=== PATIENT | male | born 1975 | race Two or more races ===

== ENCOUNTER 2022-06-16 11:56 | Emergency (ER) | payer BC ==
[~2022-06-16] VITALS: Ht 170.2 cm; Wt 144.1 kg
[2022-06-16 12:54] VITALS: BP 142/67
[2022-06-16 14:18] LABS: Urine Bacteria NONE SEEN /hpf (None Seen); Urine Blood Negative /uL (Negative); Urine Mucus FEW (None Seen); Urine Specific Gravity 1.016 (1.001-1.035); Urine WBC 1 /hpf (0 - 3)
[2022-06-16 14:22] LABS: Basophils # (auto) 0 10 ^3/uL (0-0.2); Basophils % (auto) 0.4 % (0.0-2.0); Eosinophils # (auto) 0.1 10 ^3/uL (0-0.8); Eosinophils % (auto) 1.7 % (0.0-7.0); Hematocrit 43.3 % (41.0-53.0); Hemoglobin 14.9 g/dL (13.5-17.5); Lymphocytes # (auto) 2.8 10 ^3/uL (0.4-5.4); Lymphocytes % (auto) 32.5 % (10.0-50.0); Mean Corpuscular Hemoglobin 30.2 pg (28.0-32.0); Mean Corpuscular Hgb Conc. 34.4 g/dL (32.0-36.0); Mean Corpuscular Volume 87.6 fL (80.0-100.0); Monocytes # (auto) 0.5 10 ^3/uL (0-1.3); Monocytes % (auto) 5.5 % (0.0-12.0); Neutrophils # (auto) 5.1 10 ^3/uL (1.6-8.6); Neutrophils % (auto) 59.9 % (37.0-80.0); Nucleated Red Blood Cells % 0.1 %; Red Blood Cells 4.94 10^6/uL (4.5-5.90); Red Cell Distribution Width 13.2 % (11.8-14.3); White Blood Cell 8.5 10^3/uL (4.4-10.8)
[2022-06-16 14:53] LABS: Calcium 9.3 mg/dL (8.5-10.1); Potassium 3.9 mmol/L (3.5-5.1)
[2022-06-16 14:56] LABS: BUN/Creatinine Ratio 12.4 (10.0-20.0)
[2022-06-16] MEDS ORDERED: KETOROLAC TROMETH 60MG/2ML VIAL IM ONE (15:00)
[2022-06-16] MEDS ORDERED: IBUP800T27 PO (15:12)
[2022-06-16] MEDS ORDERED: METH750T22 PO (15:12)
== END 2022-06-16 15:21 | disposition home or self-care (01) ==
LOC: ER 11:56
DX: S39.012A Strain of muscle, fascia and tendon of lower back, initial encounter (principal); E66.01 Morbid (severe) obesity due to excess calories; X58.XXXA Exposure to other specified factors, initial encounter; Y93.89 Activity, other specified; Y92.89 Other specified places as the place of occurrence of the external cause; Y99.8 Other external cause status
CPT/HCPCS: 36415; 74176; 80048; 81001; 85025; 96372; 99285; J1885

== ENCOUNTER 2024-02-10 17:42 | Inpatient (IN) | payer BC ==
[~2024-02-10] VITALS: Ht 170.2 cm; Wt 139.5 kg
[~2024-02-10 17:42] MED LIST: IBUP-1456 PO; METH-1182 PO
--- NOTE | 2024-02-10 17:50 | ECG ---
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
--- NOTE | 2024-02-10 18:20 | ED.PDOC ---
HPI Comments 48y M who presents to the ED for chief complaint of chest pain. Pt states he has been having chest pain since earlier this AM when waking from sleep. Pt states his pain is substernal, radiating to the back, constant, pressure like in nature, rating the pain 7/10 with no associated exacerbating or relieving factors. Pt has no associated symptoms but denies shortness of breath, diaphoresis, palpitations, headache, nausea, vomiting, fever, cough or chills. Pt has no past medical history and denies these symptoms in the past. Pt states he came as a precautionary measure just to make sure everything is okay. Pt otherwise has noted stable vitals in the ED. Pt denies any other symptoms at this time. Chief Complaint: Chest Pain Time Seen by MD: 18:16 Primary Care Provider: DENIES Reviewed Notes: Medications, Allergies Allergies: Coded Allergies: NO KNOWN ALLERGIES (Unverified , 12/24/13) Home Meds Active Scripts Methocarbamol (Methocarbamol) 750 Mg Tab, 750 MG PO BID, #30 TAB Prov:ROSA JARAMILLO 06/16/22 Ibuprofen (Ibuprofen) 800 Mg Tab, 1 TAB PO TID, #30 TAB Prov:ROSA JARAMILLO 06/16/22 Information Source: Patient Mode of Arrival: Ambulatory Brought in by: self Severity: Moderate Timing: Hours Duration: Since onset Prehospital treatment: None Location: Chest (R) Radiation: Back Quality: Pressure Onset: At Rest Cardiac Risk Factors: None PE Risk Factors: None History of: None Modifying Factors: Nothing Associated Signs and Symptoms: None Past Medical History PAST MEDICAL HISTORY: Denies Surgical History: Denies all surgeries Family History Family History: Reviewed,noncontributory to illness Social History Smoker: Non-Smoker Alcohol: Occasionally Drugs: Denies Drug Use Lives In: Home Constitutional: denies: chills, diaphoresis, fatigue, fever, malaise, sweats, weakness, others EENTM: denies: blurred vision, double vision, ear bleeding, ear discharge, ear drainage, ear pain, ear ringing, eye pain, eye redness, hearing loss, mouth pain, mouth swelling, nasal discharge, nose bleeding, nose congestion, nose pain, photophobia, tearing, throat pain, throat swelling, voice changes, others Respiratory: denies: cough, hemoptysis, orthopnea, SOB at rest, shortness of breath, SOB with excertion, stridor, wheezing, others Cardiovascular: reports: chest pain; denies: dizzy spells, diaphoresis, Dyspnea on exertion, edema, irregular heart beat, left arm pain, lightheadedness, palpitations, PND, syncope, others Gastrointestinal: denies: abdomen distended, abdominal pain, blood streaked bowels, constipated, diarrhea, dysphagia, difficulty swallowing, hematemesis, melena, nausea, poor appetite, poor fluid intake, rectal bleeding, rectal pain, vomiting, others Genitourinary: denies: burning, dysuria, flank pain, frequency, hematuria, incontinence, penile discharge, penile sore, pain, testicle pain, testicle swelling, urgency, others Neurological: denies: dizziness, fainting, headache, left sided numbness, left sided weakness, numbness, paresthesia, pre-existing deficit, right sided numbness, right sided weakness, seizure, speech problems, tingling, tremors, weakness, others Musculoskeletal: denies: back pain, gout, joint pain, joint swelling, muscle pain, muscle stiffness, neck pain, others Integumetry: denies: bruises, change in color, change in hair/nails, dryness, laceration, lesions, lumps, rash, wounds, others Allergic/Immunocompromised: denies: Difficulty Healing, Frequent Infections, Hives, Itching, others Hematologic/Lymphatic: denies: anemia, blood clots, easy bleeding, easy bruising, swollen glands, others Endocrine: denies: excessive hunger, excessive sweating, excessive thirst, excessive urination, flushing, intolerance to cold, intolerance to heat, unexplained weight gain, unexplained weight loss, others Psychiatric: denies: anxiety, bipolar disorder, depression, hopeless, panic di sorder, schizophrenia, sleepless, suicidal, others All Other Systems: Reviewed and Negative Physical Exam General Appearance: Moderate Distress, Obese HEENT: Normal ENT Inspection, Pharynx Normal, TMs Normal Neck: Full Range of Motion, Non-Tender, Normal, Normal Inspection Respiratory: Chest Non-Tender, Lungs Clear, No Accessory Muscle Use, No Respiratory Distress, Normal Breath Sounds Cardiovascular: No Edema, No JVD, No Murmur, No Gallop, Normal Peripheral Pulses, Regular Rate/Rhythm Breast Exam: Deferred Gastrointestinal: No Organomegaly, Non Tender, No Pulsatile Mass, Normal Bowel Sounds, Soft Genitalia: Deferred Pelvic: Deferred Rectal: Deferred Extremities: No calf tenderness, Normal capillary refill, Normal inspection, Normal range of motion, Non-tender, No pedal edema Musculoskeletal : Apperance: Normal Neurologic: Alert, manager technical support II-XII nml as Tested, No Motor Deficits, Normal Affect, Normal Mood, No Sensory Deficits Cerebellar Function: Normal Reflexes: Normal Skin: Dry, Normal Color, Warm Lymphatic: No Adenopathy EKG EKG : Pulse Rate (adult): 68 [place]: Normal Cardiac Rhythm: NSR Block: None Hypertrophy: None ST: Normal Was a procedure done? Was a procedure done?: No CP Differential Dx Differential Diagnosis: Angina, Anxiety / Panic Attack, Atrial Dysrhythmia Other Differential Diagnosis musculoskeletal chest pain Differential Diagnosis: Angina, Chest Wall Pain, Costochondritis X-Ray, Labs, Meds, VS Vital Signs Date Time Temp Pulse Resp B/P (MAP) Pulse Ox O2 Delivery O2 Flow Rate FiO2 02/10/24 18:44 74 18 99 Room Air* 0 21 02/10/24 18:42 98.3 59 18 132/87 (102) 93 98.3 02/10/24 18:37 65 02/10/24 18:20 68 02/10/24 17:56 98.4 70 19 142/81 (101) 95 02/10/24 17:48 68 Lab Test 02/10/24 18:40 02/10/24 17:59 Range/Units Troponin I High Sensitivity < 3 L < 3 L </=54 ng/L White Blood Count 7.1 4.4-10.8 10^3/uL Red Blood Count 5.03 4.5-5.90 10^6/uL Hemoglobin 15.2 13.5-17.5 g/dL Hematocrit 45.2 41.0-53.0 % Mean Corpuscular Volume 89.9 80.0-100.0 fL Mean Corpuscular Hemoglobin 30.3 28.0-32.0 pg Mean Corpuscular Hemoglobin Concent 33.7 32.0-36.0 g/dL Red Cell Distribution Width 13.0 11.8-14.3 % Platelet Count 223 140-450 10^3/uL Mean Platelet Volume 9.2 6.9-10.8 fL Neutrophils (%) (Auto) 51.6 37.0-80.0 % Lymphocytes (%) (Auto) 38.5 10.0-50.0 % Monocytes (%) (Auto) 6.2 0.0-12.0 % Eosinophils (%) (Auto) 3.3 0.0-7.0 % Basophils (%) (Auto) 0.4 0.0-2.0 % Neutrophils # (Auto) 3.6 1.6-8.6 10 ^3/uL Lymphocytes # (Auto) 2.7 0.4-5.4 10 ^3/uL Monocytes # (Auto) 0.4 0-1.3 10 ^3/uL Eosinophils # (Auto) 0.2 0-0.8 10 ^3/uL Basophils # (Auto) 0 0-0.2 10 ^3/uL Nucleated Red Blood Cells 0.3 % Sodium Level 142 136-145 mmol/L Potassium Level 4.3 3.5-5.1 mmol/L Chloride Level 108 H 98-107 mmol/L Carbon Dioxide Level 27 20-31 mmol/L Anion Gap 7 5-15 Blood Urea Nitrogen 19 9-23 mg/dL Creatinine 1.12 0.700-1.30 mg/dL Glomerular Filtration Rate Calc 81 >90 mL/min BUN/Creatinine Ratio 17.0 10.0-20.0 Serum Glucose 152 H 74-106 mg/dL Calcium Level 9.9 8.7-10.4 mg/dL Total Bilirubin 0.3 0.2-1.0 mg/dL Aspartate Amino Transferase (AST) 19 13-40 U/L Alanine Aminotransferase (ALT) 31 7-40 U/L Alkaline Phosphatase 72 46-116 U/L Total Protein 6.8 5.7-8.2 g/dL Albumin 4.6 3.2-4.8 g/dL Current Medications Medications (Trade) Dose Ordered Sig/[place]ana Route Start Time Stop Time Status Last Admin Aspirin 162 mg ONCE ONCE PO 02/10/24 18:00 02/10/24 18:01 DC 02/10/24 18:42 XY CHEST PORTABLE, IMPRESSION: No acute intrathoracic abnormality. The CBC and chemistry panel are within normal limits The troponin level x2 is within normal limits The patient was given aspirin 162 mg by mouth The patient was still having some chest pressure At this time, we are going to admit the patient to the hospitalist for further care Images Reviewed?: Images reviewed and evaluated by me Time of 1ST Reevaluation: 18:45 Reevaluation 1ST: Unchanged Patient Education/Counseling: Diagnosis, Treatment, Prognosis Family Education/Counseling: No Family Present Departure 1 Departure Time of Disposition: 19:26 Impression: Primary Impression: Acute coronary syndrome Disposition: 09 ADMITTED INPATIENT Admit to: Tele Condition: Fair Critical Care Note Critical Care Time?: No Stability Stability form required: Yes Unstable for transfer: Telemetry monitoring (Telemetry monitoring required), ED Physician Assesment (Clinical assesment) Heart Score Heart Score: Heart Score Response (Comments) Value History Moderate Suspicious 1 EKG Normal 0 Age 45-64 1 Risk Factors 1 or 2 risk factors 1 Troponin Normal limit 0 Total 3 I personally scribed for JACQUELYN FELIZ MD (TOM) on 02/10/24 at 18:20. Electronically submitted by Za Khalil ([email or web address]). I personally scribed for JACQUELYN FELIZ MD ([email or web address]) on 02/10/24 at 18:36. Electronically submitted by Za Khalil ([email or web address]). JACQUELYN FELIZ MD Feb 10, 2024 18:20
--- NOTE | 2024-02-10 18:31 | DVH ---
XY CHEST PORTABLE, HISTORY: CP COMPARISON: None None TECHNICAL DATA: 1 view of the chest was obtained. FINDINGS: Lines and tubes: None Cardiomediastinal silhouette: normal Pulmonary vasculature: normal Lung expansion: normal Lung airspace: normal Lung interstitium: normal Pleura: normal Pneumothorax: no Bones: Unremarkable Other: no IMPRESSION: No acute intrathoracic abnormality.
--- NOTE | 2024-02-10 18:38 | ECG ---
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
[2024-02-10] MEDS: ASPirin 81 mg TAB PO ONE (18:42)
[2024-02-10 18:44] VITALS: PULSE 74; RESP 18; O2SAT 99
[2024-02-10 18:51] LABS: Basophils # (auto) 0 10 ^3/uL (0-0.2); Basophils % (auto) 0.4 % (0.0-2.0); Eosinophils # (auto) 0.2 10 ^3/uL (0-0.8); Eosinophils % (auto) 3.3 % (0.0-7.0); Hematocrit 45.2 % (41.0-53.0); Hemoglobin 15.2 g/dL (13.5-17.5); Lymphocytes # (auto) 2.7 10 ^3/uL (0.4-5.4); Lymphocytes % (auto) 38.5 % (10.0-50.0); Mean Corpuscular Hemoglobin 30.3 pg (28.0-32.0); Mean Corpuscular Hgb Conc. 33.7 g/dL (32.0-36.0); Mean Corpuscular Volume 89.9 fL (80.0-100.0); Monocytes # (auto) 0.4 10 ^3/uL (0-1.3); Monocytes % (auto) 6.2 % (0.0-12.0); Neutrophils # (auto) 3.6 10 ^3/uL (1.6-8.6); Neutrophils % (auto) 51.6 % (37.0-80.0); Nucleated Red Blood Cells % 0.3 %; Platelet Count (auto) 223 10^3/uL (140-450); Red Blood Cells 5.03 10^6/uL (4.5-5.90); White Blood Cell 7.1 10^3/uL (4.4-10.8)
[2024-02-10 18:59] LABS: Alanine Aminotransferase 31 U/L (7-40); Albumin 4.6 g/dL (3.2-4.8); Alkaline Phosphatase 72 U/L (46-116); Anion Gap 7 (5-15); Aspartate Aminotransferase 19 U/L (13-40); Blood Urea Nitrogen 19 mg/dL (9-23); Calcium 9.9 mg/dL (8.7-10.4); Carbon Dioxide 27 mmol/L (20-31); Chloride 108 mmol/L (98-107); Glucose 152 mg/dL (74-106); Potassium 4.3 mmol/L (3.5-5.1); Sodium 142 mmol/L (136-145)
[2024-02-10 19:00] LABS: Bilirubin, Total 0.3 mg/dL (0.2-1.0); Total Protein 6.8 g/dL (5.7-8.2)
[2024-02-10] MEDS ORDERED: ACETAMINOPHEN 325 MG TAB PO PRN (20:30)
[2024-02-10] MEDS ORDERED: DOCUSATE SOD 100 MG CAP PO PRN (20:30)
[2024-02-10] MEDS ORDERED: ONDANSETRON HCL 4 MG/2 ML VIAL IV PRN (20:30)
[2024-02-10] MEDS ORDERED: MORPHINE SULFATE INJ 2 MG/ml SYRG IV PRN ×3 (20:30→21:45)
[2024-02-10] MEDS ORDERED: NITROGLYCERIN 0.4 MG SL TAB SL PRN ×2 (20:30→21:45)
--- NOTE | 2024-02-10 21:39 | DVHHPRES ---
History of Present Illness Resident Creating Document: WALLACE TOMLIN RESIDENT History of Present Illness Patient is 48 years male with no significant past medical history came with a complaint of chest pain and tightness that started today morning, patient reported he started feeling chest pain or tightness under the left side of the chest, pressure-like, radiating to the back, 7/10 in severity, increased with breathing, no decreasing factor. Patient reported he never had this kind of chest pain before. Patient also reports some short of breath with the breathing. Patient denied any fever, cough, palpitation, acute joint pain or swelling, recent travel or prolonged sitting, trauma to the chest, acute joint redness, dysarthria, slurring speech. Initial lab workup was not significant except blood sugar 152, GFR 81, troponin negative 3, D-dimer 0.2. Chest x-ray no acute cardiopulmonary disease. EKG revealed inverted T-wave in lead 3, AVF. D-dimer 0.2. Doppler of the lower extremity negative for DVT. CXR no acute intrathoracic abnormality. Past Medical History None Past Surgical History None Family History Mom and dad diabetes mellitus Past Social History Denies smoking, occasional alcoholic, denies using drugs, lives with at h ome Review of Systems Review of Systems Allergy- NKDA Patient was seen today at the bedside. Patient complained of chest pain Cardiovascular- deny acute shortness of breath or cough or palpitation Respiratory- denies cough or short of breath or wheezing Gastrointestinal- denies any rectal bleeding, nausea or vomiting Musculoskeletal-denies acute joint swelling or tenderness or redness Neurological- denies acute dysarthria, dysphagia, change in vision Psychiatry- denies depression or SI or HI Skin- denies acute rash or purpura Allergies: Coded Allergies: NO KNOWN ALLERGIES (Unverified , 12/24/13) Medications Current Medications Medications Dose Ordered Sig/[place] Route Start Time Stop Time Status Last Admin Dose Admin Sodium Chloride 10 ml Q8HR IV 02/10/24 22:00 Ondansetron HCl 4 mg Q4HP PRN IV 02/10/24 20:30 Docusate Sodium 100 mg BIDPRN PRN PO 02/10/24 20:30 Acetaminophen 650 mg Q6HP PRN PO 02/10/24 20:30 Morphine Sulfate 2 mg Q4HPRN PRN IV 02/10/24 20:30 Nitroglycerin 0.4 mg Q5MINP PRN SL 02/10/24 20:30 Morphine Sulfate 2 mg Q30M PRN IV 02/10/24 20:30 Exam Vital Signs Vital Signs Date Time Temp Pulse Resp B/P (MAP) Pulse Ox O2 Delivery O2 Flow Rate FiO2 02/10/24 18:44 74 18 99 Room Air* 0 21 02/10/24 18:42 98.3 132/87 (102) 98.3 Exam General examination-awake , alert, oriented, conversant HEENT- PEERLA, no acute nasal discharge Cardiovascular- S1-S2 audible, rate and rhythm regular, no murmur Respiratory- CTAB, no wheeze or rhonchi Gastrointestinal-nontender, bowel sound+. Nondistended Musculoskeletal-no acute joint swelling or tenderness or redness# Lower extremity- no leg edema Neurological- cranial nerves intact, no acute dysarthria or dysphagia Psychiatry- denies depression or SI or HI Skin- no acute rash or purpura Labs/Xrays Labs Test 02/10/24 18:40 02/10/24 17:59 Range/Units Troponin I High Sensitivity < 3 L </=54 ng/L White Blood Count 7.1 4.4-10.8 10^3/uL Red Blood Count 5.03 4.5-5.90 10^6/uL Hemoglobin 15.2 13.5-17.5 g/dL Hematocrit 45.2 41.0-53.0 % Mean Corpuscular Volume 89.9 80.0-100.0 fL Mean Corpuscular Hemoglobin 30.3 28.0-32.0 pg Mean Corpuscular Hemoglobin Concent 33.7 32.0-36.0 g/dL Red Cell Distribution Width 13.0 11.8-14.3 % Platelet Count 223 140-450 10^3/uL Mean Platelet Volume 9.2 6.9-10.8 fL Neutrophils (%) (Auto) 51.6 37.0-80.0 % Lymphocytes (%) (Auto) 38.5 10.0-50.0 % Monocytes (%) (Auto) 6.2 0.0-12.0 % Eosinophils (%) (Auto) 3.3 0.0-7.0 % Basophils (%) (Auto) 0.4 0.0-2.0 % Neutrophils # (Auto) 3.6 1.6-8.6 10 ^3/uL Lymphocytes # (Auto) 2.7 0.4-5.4 10 ^3/uL Monocytes # (Auto) 0.4 0-1.3 10 ^3/uL Eosinophils # (Auto) 0.2 0-0.8 10 ^3/uL Basophils # (Auto) 0 0-0.2 10 ^3/uL Nucleated Red Blood Cells 0.3 % Sodium Level 142 136-145 mmol/L Potassium Level 4.3 3.5-5.1 mmol/L Chloride Level 108 H 98-107 mmol/L Carbon Dioxide Level 27 20-31 mmol/L Anion Gap 7 5-15 Blood Urea Nitrogen 19 9-23 mg/dL Creatinine 1.12 0.700-1.30 mg/dL Glomerular Filtration Rate Calc 81 >90 mL/min BUN/Creatinine Ratio 17.0 10.0-20.0 Serum Glucose 152 H 74-106 mg/dL Calcium Level 9.9 8.7-10.4 mg/dL Total Bilirubin 0.3 0.2-1.0 mg/dL Aspartate Amino Transferase (AST) 19 13-40 U/L Alanine Aminotransferase (ALT) 31 7-40 U/L Alkaline Phosphatase 72 46-116 U/L Total Protein 6.8 5.7-8.2 g/dL Albumin 4.6 3.2-4.8 g/dL Assessment/Plan Assessment/Plan Acute chest pain likely due to PE/ACS/pericarditis -troponin I negative -EKG T-wave inversion in lead 2 and 3 -Doppler study of the lower extremity negative for DVT -continue aspirin 81 mg daily -continue pain medication as prescribed -nitroglycerin p.r.n. # pleuritic chest pain likely due to pericarditis -continue prednisone 40 mg daily -continue pain medication as prescribed # obesity -BMI 47.6 -patient was counseled about weight reduction, healthy diet, physical activity Goals of care/advance care planning; FULL CODE; discussed with the patient >15 minutes PUD prophylaxis: DVT prophylaxis: Patient ambulating Plan discussed with Dr. Reza, nursing staff, patient Total time spent on patient evaluation, chart review, assessment and plan, discussion discussion >30 minutes Plan discussed with: Patient Plan discussed with: Patient, Other (RN) My Orders Orders - WALLACE TOMLIN RESIDENT Procedure Category Date Status Time Admit ADMIT 02/10/24 Transmitted 20:17 Code Status CODE 02/10/24 Transmitted 20:17 Sodium Chloride Lock PHA 02/10/24 In Process (Saline Lock Ns) 22:00 Ondansetron Hcl PHA 02/10/24 In Process (Zofran) 20:30 Docusate Sodium PHA 02/10/24 In Process Capsule (Colace 20:30 Complete Blood Count LAB 02/11/24 Verified 04:00 Comprehensive LAB 02/11/24 Verified Metabolic Panel 04:00 Cardiac DIET 02/11/24 Transmitted Diet-2gna,Lofat,Lochol Breakfast Acetaminophen Tablet PHA 02/10/24 In Process (Tylenol Tablet) 20:30 Morphine Sulfate PHA 02/10/24 In Process Injection 20:30 Nitroglycerin PHA 02/10/24 In Process Sublingual (Ntrostat 20:30 Morphine Sulfate PHA 02/10/24 In Process Injection 20:30 Oxygen By Nasal RT 02/10/24 Transmitted Cannula 20:17 Stat Ekg For Chest TASHA 02/10/24 In Process Pain 20:17 Notify Of Changes TASHA 02/10/24 In Process From Base 20:17 Aquatic Centre Manager For [facility] 02/10/24 In Process 24 Hours 20:17 Emergency Dysrhythmia TASHA 02/10/24 In Process Protocol 20:17 Rhythm Strips Once [facility] 02/10/24 In Process Every Shift 20:17 Echo 2d Mode Cardiac US 02/10/24 Logged DOP 20:20 Date of Service: Feb 10, 2024 Billing Provider: OLIVE REZA MD Common Visit Codes: 06848-NHRVBJS INP/OBS CARE (HIGH) Secondary Visit Codes: 10907-[id number] CARE PLAN 30 MINUTES WALLACE TOMLIN RESIDENT Feb 10, 2024 21:39 OLIVE REZA MD Feb 11, 2024 17:53
[2024-02-10 21:40] LABS: Urine Bacteria None Seen /hpf (None Seen)
[2024-02-10] MEDS: SODIUM CHLOR 0.9% PF (SALINE LOCK) 10ML VIAL/SYR IV SCH (22:00)
[2024-02-10 22:03] VITALS: BP 133/75; PULSE 66; RESP 18; TEMP 98.1; O2SAT 93
[2024-02-10] MEDS: FAMOTIDINE 20 MG TAB PO ONE (22:03)
[2024-02-10 22:08] LABS: Urine Blood Negative /uL (Negative); Urine Clarity Clear (Clear); Urine Color Light-Yellow (Yellow); Urine Protein, UAD Negative (Negative); Urine Specific Gravity 1.029 (1.001-1.035); Urine Urobilinogen Normal (Negative); Urine WBC <1 /hpf (0 - 3); Urine pH 5.5 (5.0-9.0)
[2024-02-10 22:18] VITALS: BP 133/75; PULSE 66; PULSE 93; RESP 18; TEMP 98.1; O2SAT 93
--- NOTE | 2024-02-10 22:48 | DVH ---
Bilateral lower extremity venous duplex Clinical History: CHEST PAIN Comparison: None Technique: Duplex Doppler evaluation of the deep venous systems of both lower extremities from the common femora l veins to the popliteal veins including color Doppler and spectral/pulsed waveform analysis was perf ormed. Findings: RIGHT SIDE: The common femoral vein demonstrates appropriate compressibility and waveform variability. There is compressibility/patency of the great saphenous vein at the proximal thigh. The femoral vein demonstrates appropriate compressibility and waveform variability. The deep femoral vein demonstrates appropriate compressibility and waveform variability. The popliteal vein demonstrates appropriate compressibility and waveform variability. There is normal compressibility at the tibioperoneal trunk. LEFT SIDE: The common femoral vein demonstrates appropriate compressibility and waveform variability. There is compressibility/patency of the great saphenous vein at the proximal thigh. The femoral vein demonstrates appropriate compressibility and waveform variability. The deep femoral vein demonstrates appropriate compressibility and waveform variability. The popliteal vein demonstrates appropriate compressibility and waveform variability. There is normal compressibility at the tibioperoneal trunk. Impression: 1. No right or left femoropopliteal venous thrombosis.
[2024-02-10] MEDS ORDERED: cefTRIAXone 1GM/50ML D5W 50 ML IV ONE (23:45)
[2024-02-11] VITALS (12 sets, daily range): BP systolic 102–156; BP diastolic 35–94; PULSE 62–103; RESP 16–19; TEMP 97.8–98.7; O2SAT 94–98
[2024-02-11] MEDS: predniSONE 20 MG TAB PO ONE (00:25)
[2024-02-11 00:30] LABS: Erythrocyte Sedimentation Rate 7 mm/hr (0-20)
--- NOTE | 2024-02-11 07:01 | ECG ---
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
[2024-02-11 07:19] LABS: Alanine Aminotransferase 26 U/L (7-40); Albumin 4.2 g/dL (3.2-4.8); Alkaline Phosphatase 66 U/L (46-116); Anion Gap 7 (5-15); Aspartate Aminotransferase 14 U/L (13-40); BUN/Creatinine Ratio 14.9 (10.0-20.0); Blood Urea Nitrogen 15 mg/dL (9-23); Calcium 9.6 mg/dL (8.7-10.4); Carbon Dioxide 23 mmol/L (20-31); Chloride 107 mmol/L (98-107); Cholesterol 183 mg/dL (< 200); Glucose 196 mg/dL (74-106); HDL Cholesterol 49 mg/dL (40-59); LDL Cholesterol 123 mg/dL (< 100); Potassium 4.2 mmol/L (3.5-5.1); Sodium 137 mmol/L (136-145); Triglycerides 128 mg/dL (< 150)
[2024-02-11 07:20] LABS: Bilirubin, Total 0.3 mg/dL (0.2-1.0); Total Protein 6.9 g/dL (5.7-8.2)
[2024-02-11 07:46] LABS: Basophils # (auto) 0 10 ^3/uL (0-0.2); Basophils % (auto) 0.3 % (0.0-2.0); Eosinophils # (auto) 0 10 ^3/uL (0-0.8); Eosinophils % (auto) 0.5 % (0.0-7.0); Hematocrit 44.1 % (41.0-53.0); Hemoglobin 15.4 g/dL (13.5-17.5); Lymphocytes # (auto) 1.4 10 ^3/uL (0.4-5.4); Lymphocytes % (auto) 19.8 % (10.0-50.0); Mean Corpuscular Hemoglobin 31.2 pg (28.0-32.0); Mean Corpuscular Hgb Conc. 34.9 g/dL (32.0-36.0); Mean Corpuscular Volume 89.4 fL (80.0-100.0); Monocytes # (auto) 0.1 10 ^3/uL (0-1.3); Neutrophils # (auto) 5.6 10 ^3/uL (1.6-8.6); Neutrophils % (auto) 77.4 % (37.0-80.0); Nucleated Red Blood Cells % 0.1 %; Platelet Count (auto) 201 10^3/uL (140-450); Red Blood Cells 4.94 10^6/uL (4.5-5.90); Red Cell Distribution Width 12.9 % (11.8-14.3); White Blood Cell 7.2 10^3/uL (4.4-10.8)
[2024-02-11] MEDS: ASPirin 81 mg TAB PO SCH (09:56)
[2024-02-11] MEDS: predniSONE 20 MG TAB PO SCH (09:56)
[2024-02-11] MEDS: FAMOTIDINE 20 MG TAB PO SCH (09:57)
[2024-02-11 11:06] LABS: INR 1.01 (0.9-1.15); Partial Thromboplastin Time 28.5 SEC (24.5-34.5); Prothrombin Time 10.7 sec (9.3-11.8)
--- NOTE | 2024-02-11 11:23 | DVHSR ---
APPROVED REPORT EXAM: Two-dimensional and M-mode echocardiogram with Doppler and color Doppler. Blood Pressure: 136/70 mmHg INDICATION Chest Pain RISK FACTORS Height: 67, Weight: 304 DIMENSIONS LVDd5.1 (3.8-5.7cm)LA (2D) (1.9-4.0cm)Aortic Root3.6 (2.0-3.7cm) LVDs3.5 (2.5-4.0cm)LA (MM) (1.9-4.0cm)Aortic Cusp Exc2.1 (1.5-2.0cm) EF (%) 61.0 (55-70%)Rt. Atrium (1.9-4.0cm)Asc. Aorta cm IVSd1.0 (0.7-1.1cm)RV (D) (1.8-2.4cm) PWd1.2 (0.7-1.1cm) Mitral Valve MitralMitral Stenosis E wave0.74m/sMV Mean GR.mmHg A wave0.91m/sMV Peak GR.mmHg E/A ratio0.82D MVAcm2 DECEL [id number] 1/2 [id number] IVRTmsDop MVA3.17cm2 Aortic Valve Aortic ValveAortic Stenosis V11.13m/Natalie Mean GR.5mmHg V21.52m/Natalie Peak GR.9mmHg LVOT Diameter2.4 (1.8-2.4cm)Doppler AVA3.36cm2 Pulmonic Valve V21.17m/s Other Information Technically limited study due to body habitus. Conclusion Normal left ventricular size and dimension. Normal left ventricular systolic function estimated ejec tion fraction 55%. There is a grade 1 diastolic dysfunction. Normal right ventricular size and dimension. Normal right ventricular systolic function. Normal biatrial size and dimension. Normal aortic valve structure and function. Normal mitral valve structure and function. Normal tricuspid valve structure and function. The pulmonary valve is grossly normal. No pericardial effusion. New
--- NOTE | 2024-02-11 14:37 | DVHPNRES ---
Progress Note Date Seen: Feb 11, 2024 Resident Creating Document: AMANDA MANCILLA RESIDENT Medical Necessity Reason Pt with a Central, PICC or Fol: No Subjective Review of Systems ZONIA KING is 40 years old male with no significant past medical history presented to the ED with the chief complaints of chest tightness since day prior to admission. Patient yesterday woke up in the morning with the chest tightness in left-side which is going to back, aggravated by taking deep breaths, relieved by taking rest which is intermittent 7/10 intensity which brought him to visit ED. On my assessment patient denies fever, chills nausea, vomiting, diarrhea, recent travel, sick contacts, recent flu-like symptoms and other associated symptoms PMH: Denies PSH: Denies Family history: Reviewed, noncontributory Social history currently lives at home. Occasional alcohol but denies smoking and other drug abuse Allergies: No known allergies Patient seen and examined at the bedside. Patient reported improvement in hs symptoms since admission , sleep was good. Reviewed EKG and troponins x2 were negative. Echocardiogram showed normal LVEF 55% with a grade 1 diastolic dysfunction. Patient was initially given prednisone but discontinued. currently monitoring and telemetry unit for any unusual activities going on. Possible DC tomorrow. Patient reports: Feels better Objective vital signs Vital Sign Date Time Temp Pulse Resp B/P (MAP) Pulse Ox O2 Delivery O2 Flow Rate FiO2 02/11/24 13:11 98.3 73 17 156/94 96 0.0 21 98.3 02/11/24 08:00 Room Air* Total Intake and Output 02/10/24 02/10/24 02/11/24 15:00 23:00 07:00 Intake Total 500 ml Balance 500 ml medications Current Medications Medications Dose Ordered Sig/Savana Route Start Time Stop Time Status Last Admin Dose Admin Sodium Chloride 10 ml Q8HR IV 02/10/24 22:00 02/11/24 09:57 10 ML Ondansetron HCl 4 mg Q4HP PRN IV 02/10/24 20:30 Docusate Sodium 100 mg BIDPRN PRN PO 02/10/24 20:30 Acetaminophen 650 mg Q6HP PRN PO 02/10/24 20:30 Morphine Sulfate 2 mg Q4HPRN PRN IV 02/10/24 20:30 Nitroglycerin 0.4 mg Q5MINP PRN SL 02/10/24 20:30 Morphine Sulfate 2 mg Q30M PRN IV 02/10/24 20:30 Aspirin 81 mg DAILY PO 02/11/24 10:00 02/11/24 09:56 81 MG Morphine Sulfate 2 mg Q6HPRN PRN IV 02/10/24 21:45 Nitroglycerin 0.4 mg Q5MINP PRN SL 02/10/24 21:45 Famotidine 20 mg Q12HR PO 02/11/24 10:00 02/11/24 09:57 20 MG Examination Pt is lying on bed General Appearance: Alert, Oriented X3, Cooperative, Not in acute distress HEENT: Atraumatic, Mucous membranes moist/pink Respiratory: Clear to auscultation, Normal air movement, No added sounds Cardiovascular: Regular rate, Normal S1, Normal S2, No murmurs Abdominal: Active bowel sounds, Soft, no distention, no tenderness Extremities: No edema, Normal pulses, No tenderness/swelling Skin: No Significant rash, except past surgical scars Neuro: Normal speech, sensorimotor deficits none Psych/Mental Status: Mental status NL, Mood NL Nurse was there as sharperone during examination laboratory and microbiology Laboratory Tests 02/11/24 05:33 Test 02/11/24 05:33 Range/Units Serum Glucose 196 H 74-106 mg/dL Labs and/or images reviewed: Labs reviewed by me, Image(s) reviewed by me Problem List/Assessment/Plan Problem List/Assessment/Plan # Acute chest pain likely musculoskeletal # ? likely costochondritis # Ruled out PE/ACS/pericarditis -troponin I negative -EKG T-wave inversion in lead 2 and 3 -Doppler study of the lower extremity negative for DVT -continue aspirin 81 mg daily -continue pain medication as prescribed -nitroglycerin p.r.n. - discontinued prednisone 40 mg daily # Morbid obesity -BMI 47.6 -patient was counseled about weight reduction, healthy diet, physical activity # ? obstructive sleep apnea - outpatient follow up for sleep study - CPAP or BiPAP during the night No VTE PPX since patient is ambulatory Famotidine Cardiac diet Reconciled home meds Goals of care discussed with the patient for more than 27 minutes: Full code status Case management discussed with Dr. Vu, patient and nurse Plan discussed with: Patient My Orders My Orders Orders - AMANDA MANCILLA RESIDENT Procedure Category Date Status Time Vitamin D, 25-Hydroxy LAB 02/11/24 In Process 08:36 Vitamin B12 LAB 02/11/24 In Process 08:36 Bipap/Cpap For Sleep RT 02/11/24 Logged Apnea 12:32 Date of Service: Feb 11, 2024 Billing Provider: RHONDA VU MD Common Visit Codes: [id number] INP/OBS CARE(HIGH) AMANDA MANCILLA RESIDENT Feb 11, 2024 14:37 RHONDA VU MD Feb 11, 2024 20:09
[2024-02-11] MEDS ORDERED: cefTRIAXone 1GM/50ML D5W 50 ML IV SCH (21:00)
[2024-02-12] VITALS (7 sets, daily range): BP systolic 112–132; BP diastolic 54–86; PULSE 71–82; RESP 16–18; TEMP 97.5–98.6; O2SAT 96–100
[2024-02-12] MEDS ORDERED: BLOO1KIT60 XX (11:20)
[2024-02-12] MEDS ORDERED: ACET-1882 PO (11:20)
[2024-02-12] MEDS ORDERED: METF-370 PO (11:20)
[2024-02-12 14:06] LABS: T3 Total 0.99 ng/mL (0.60-1.81)
[2024-02-12 14:07] LABS: Free T4 (Free Thyroxine) 1.04 ng/dL (0.89-1.76)
--- NOTE | 2024-02-12 15:16 | DVHDSRES ---
Discharge Summary Date of Admission Resident Creating Document: AMANDA MANCILLA RESIDENT Feb 10, 2024 at 20:17 Date of Discharge: Feb 12, 2024 Admitting Diagnosis chest pain Labs/Diagnostic Data: Laboratory Results Test 02/12/24 05:14 02/11/24 10:32 02/11/24 05:33 02/10/24 18:40 Magnesium Level 2.2 mg/dL (1.6-2.6) Prothrombin Time 10.7 sec (9.3-11.8) Prothrombin Time INR 1.01 (0.9-1.15) Activated Partial Thromboplast Time 28.5 SEC (24.5-34.5) Vitamin B12 Level 457 pg/mL (211-911) Vitamin D 25-Hydroxy 19.3 ng/mL (30.0-100) Free Thyroxine (T4) Calculated 1.04 ng/dL (0.89-1.76) Total Triiodothyronine (TT3) 0.99 ng/mL (0.60-1.81) White Blood Count 7.2 10^3/uL (4.4-10.8) Red Blood Count 4.94 10^6/uL (4.5-5.90) Hemoglobin 15.4 g/dL (13.5-17.5) Hematocrit 44.1 % (41.0-53.0) Mean Corpuscular Volume 89.4 fL (80.0-100.0) Mean Corpuscular Hemoglobin 31.2 pg (28.0-32.0) Mean Corpuscular Hemoglobin Concent 34.9 g/dL (32.0-36.0) Red Cell Distribution Width 12.9 % (11.8-14.3) Platelet Count 201 10^3/uL (140-450) Mean Platelet Volume 8.9 fL (6.9-10.8) Neutrophils (%) (Auto) 77.4 % (37.0-80.0) Lymphocytes (%) (Auto) 19.8 % (10.0-50.0) Monocytes (%) (Auto) 2.0 % (0.0-12.0) Eosinophils (%) (Auto) 0.5 % (0.0-7.0) Basophils (%) (Auto) 0.3 % (0.0-2.0) Neutrophils # (Auto) 5.6 10 ^3/uL (1.6-8.6) Lymphocytes # (Auto) 1.4 10 ^3/uL (0.4-5.4) Monocytes # (Auto) 0.1 10 ^3/uL (0-1.3) Eosinophils # (Auto) 0 10 ^3/uL (0-0.8) Basophils # (Auto) 0 10 ^3/uL (0-0.2) Nucleated Red Blood Cells 0.1 % Sodium Level 137 mmol/L (136-145) Potassium Level 4.2 mmol/L (3.5-5.1) Chloride Level 107 mmol/L (98-107) Carbon Dioxide Level 23 mmol/L (20-31) Anion Gap 7 (5-15) Blood Urea Nitrogen 15 mg/dL (9-23) Creatinine 1.01 mg/dL (0.700-1.30) Glomerular Filtration Rate Calc 92 mL/min (>90) BUN/Creatinine Ratio 14.9 (10.0-20.0) Serum Glucose 196 mg/dL (74-106) Hemoglobin A1c 7.1 % A1C (<5.7) Calcium Level 9.6 mg/dL (8.7-10.4) Total Bilirubin 0.3 mg/dL (0.2-1.0) Aspartate Amino Transferase (AST) 14 U/L (13-40) Alanine Aminotransferase (ALT) 26 U/L (7-40) Alkaline Phosphatase 66 U/L (46-116) B-Type Natriuretic Peptide 14.01 pg/mL (0-100) Total Protein 6.9 g/dL (5.7-8.2) Albumin 4.2 g/dL (3.2-4.8) Triglycerides Level 128 mg/dL (< 150) Cholesterol Level 183 mg/dL (< 200) LDL Cholesterol 123 mg/dL (< 100) HDL Cholesterol 49 mg/dL (40-59) Thyroid Stimulating Hormone (TSH) 0.52 uIU/mL (0.55-4.78) Erythrocyte Sedimentation Rate 7 mm/hr (0-20) Troponin I High Sensitivity < 3 ng/L (</=54) C-Reactive Protein High Sensitivity 0.60 mg/dL (<1.0) Test 02/10/24 18:00 02/10/24 17:59 Urine Color Light-yellow (Yellow) Urine Clarity Clear (Clear) Urine pH 5.5 (5.0-9.0) Urine Specific [place] 1.029 (1.001-1.035) Urine Protein Negative (Negative) Urine Ketones Negative (Negative) Urine Blood Negative /uL (Negative) Urine Nitrite Negative (Negative) Urine Bilirubin Negative (Negative) Urine Urobilinogen Normal mg/dL (Negative) Urine Leukocyte Esterase Negative /uL (Negative) Urine RBC None seen /hpf (0 - 3) Urine WBC <1 /hpf (0 - 3) Urine Squamous Epithelial Cells None seen /hpf (<5) Urine Bacteria None seen /hpf (None Seen) Urine Glucose 1+ mg/dL (Normal) D-Dimer, Quantitative 0.20 mg/L FEU (0.0-0.49) Other Laboratory Tests 02/11/24 05:33 Brief Hx & Hospital Course: ZONIA KING is 40 years old male with no significant past medical history presented to the ED with the chief complaints of chest tightness since day prior to admission. Patient yesterday woke up in the morning with the chest tightness in left-side which is going to back, aggravated by taking deep breaths, relieved by taking rest which is intermittent 7/10 intensity which brought him to visit ED. On my assessment patient denies fever, chills nausea, vomiting, diarrhea, recent travel, sick contacts, recent flu-like symptoms and other associated symptoms. Patient required hospital admission for further evaluation and management of systemic. Reviewed EKG and troponins x2 were negative, ruled out ACS. Initially suspected pericarditis so given prednisolone later discontinued. Echocardiogram showed normal LVEF 55% with a grade 1 diastolic dysfunction. Continuously monitored on telemetry unit which showed asymptomatic sinus bradycardia. Due mild leg swelling, Doppler study showed negative for DVT. Due to morbidly obese patient was counseled regarding weight reduction, healthy diet and physical activity. Due to MARCO A patient was advised to follow up on outpatient for sleep today. Patient condition was improved, hemodynamically stable and in condition to be discharged home with optimal medical treatment. Patient was advised about healthy lifestyle habits including diet and exercise and to follow up with PCP after the discharge. Pt is lying on bed General Appearance: Alert, Oriented X3, Cooperative, Not in acute distress HEENT: Atraumatic, Mucous membranes moist/pink Respiratory: Clear to auscultation, Normal air movement, No added sounds Cardiovascular: Regular rate, Normal S1, Normal S2, No murmurs Abdominal: Active bowel sounds, Soft, no distention, no tenderness Extremities: No edema, Normal pulses, No tenderness/swelling Skin: No Significant rash, except past surgical scars Neuro: Normal speech, sensorimotor deficits none Psych/Mental Status: Mental status NL, Mood NL Nurse was there as sharperone during examination Operations or Procedures Bilateral lower extremity venous duplex: No right or left femoropopliteal venous thrombosis. ECHO Conclusion Normal left ventricular size and dimension. Normal left ventricular systolic function estimated ejection fraction 55%. There is a grade 1 diastolic dysfunction. Normal right ventricular size and dimension. Normal right ventricular systolic function. Condition at Discharge: Stable Final Diagnosis/Problems List # Acute chest pain likely musculoskeletal # ? likely costochondritis # Ruled out PE/ACS/pericarditis # Morbid obesity # T2 DM # ? obstructive sleep apnea Discharge Disposition: Home Discharge Instruct/Medications Diet: Consistent carbohydrate Activity: No Restrictions, As Tolerated Follow Up/Referral: PCP Medications: Per EMR. Will start Metfoormin 500mg PO bid Discharge Statement: "Patient was advised to return to the ER or call 911 if any headaches, dizziness, shortness of breath, chest pain, abdominal pain, bleeding, fevers, or worsening of medical condition. Patient was counseled about treatment plan, medications, possible side effects, patientverbalized understanding. All questions were answered to the best of my ability. This discharge took greater then 30 minutes in planning, reviewing documentation, counseling the patient, and discussing with other team members." ASSESSMENT ASSESSMENT Assessment MUSCULOSKELETAL PAIN AND NEWLY DIAGNOSED DIABETES. Date of Service: Feb 12, 2024 Billing Provider: RHONDA CLEARY MD Common Visit Codes: 46179-UOL/OBS DISCH DAY >30min Secondary Visit Codes: [id number] COUNSELING IND Coding Comment Comment Attending Attestation I saw and evaluated the patient. I reviewed the residents note and agree with findings and plan as documented in the residents note except as documented below. 15 minutes spent discussing regarding lifestyle, dietary and exercise changes to modify disease process and improve quality of life Discharge with glucometer and metformin, will need sleep study as outpatient AMANDA MANCILLA RESIDENT Feb 12, 2024 15:16 RHONDA CLEARY MD Feb 12, 2024 22:53
== END 2024-02-12 12:57 | disposition home or self-care (01) | DRG 206 ==
LOC: ER 17:42 → EEVIPCON 17:42 → TELE 20:17 → TELE-EAST 20:19
PROVIDERS: ADMIT Student in an Organized Health Care Education/Training Program
PROC: 5A09357 Assistance with Respiratory Ventilation, Less than 24 Consecutive Hours, Continuous Positive Airway Pressure (ICD-10-PCS; principal; 2024-02-11)
DX: M94.0 Chondrocostal junction syndrome [Tietze] (principal); Z68.42 Body mass index [BMI] 45.0-49.9, adult; E66.01 Morbid (severe) obesity due to excess calories; G47.33 Obstructive sleep apnea (adult) (pediatric); E11.9 Type 2 diabetes mellitus without complications; Z79.82 Long term (current) use of aspirin
CPT/HCPCS: 36415; 71045; 80053; 80061; 81001; 82306; 82607; 83036; 83735; 83880; 84439; 84443; 84480; 84484; 85025; 85379; 85610; 85652; 85730; 86141; 87040; 93005; 93306; 93970; 94660; 99291; G0378